=== PATIENT | male | born 1965 | race Caucasian/White ===

== ENCOUNTER 2024-02-20 16:07 | Emergency (ER) | payer OTHER ==
[~2024-02-20] VITALS: Ht 165.1 cm; Wt 91.8 kg
[2024-02-20 18:17] VITALS: BP 125/89; PULSE 74; RESP 16; TEMP 98.5; O2SAT 99
== END 2024-02-20 18:19 | disposition home or self-care (01) ==
LOC: ER 16:08
DX: S93.491A Sprain of other ligament of right ankle, initial encounter (principal); I25.10 Atherosclerotic heart disease of native coronary artery without angina pectoris; I25.2 Old myocardial infarction; Z88.8 Allergy status to other drugs, medicaments and biological substances; X50.1XXA Overexertion from prolonged static or awkward postures, initial encounter; Y93.89 Activity, other specified; Y92.89 Other specified places as the place of occurrence of the external cause; Y99.8 Other external cause status
CPT/HCPCS: 73610; 99283; A6449

== ENCOUNTER 2024-06-16 16:35 | Emergency (ER) | payer MEDICARE, OTHER ==
[~2024-06-16] VITALS: Ht 172.7 cm; Wt 90.0 kg
[2024-06-16 16:46] VITALS: BP 142/77; PULSE 92; RESP 18; TEMP 97.8; O2SAT 100
[2024-06-16 18:13] LABS: BASOPHILS # (AUTO) 0.1 X10'3 (0-0.2); BASOPHILS % (AUTO) 0.7 % (0-1); EOSINOPHILS # (AUTO) 0.1 X10'3 (0-0.9); EOSINOPHILS % (AUTO) 1.2 % (0-6); HEMOGLOBIN 16.8 g/dl (14.0-17.9); LYMPHOCYTES # (AUTO) 2.1 X10'3 (1.1-4.8); LYMPHOCYTES % (AUTO) 17.6 % (21-51); MEAN CORPUSCULAR HEMOGLOBIN 31.5 PG (27.0-31.0); MEAN CORPUSCULAR HGB CONC 34.3 g/dL (33.0-36.5); MEAN CORPUSCULAR VOLUME 91.7 FL (78-98); MEAN PLATELET VOLUME 8.3 FL (7.4-10.4); MONOCYTES # (AUTO) 0.6 X10'3 (0-0.9); MONOCYTES % (AUTO) 5.1 % (2-12); NEUTROPHILS % (AUTO) 75.4 % (42-75); PLATELET COUNT 246 X10'3 (140-440); RED BLOOD COUNT 5.35 X10'6 (4.70-6.10); RED CELL DISTRIBUTION WIDTH 13.3 % (11.5-14.5); WHITE BLOOD COUNT 11.9 X10'3 (4.5-11.0)
[2024-06-16 18:27] LABS: ALANINE AMINOTRANSFERASE 43 U/L (12-78); ALBUMIN 3.8 G/DL (3.4-5.0); ALBUMIN/GLOBULIN RATIO 1.1 (1.1-1.5); ALKALINE PHOSPHATASE 90 IU/L (46-116); ANION GAP 7 (8-16); ASPARTATE AMINO TRANSFERASE 22 U/L (10-37); BILIRUBIN,TOTAL 0.4 MG/DL (0.1-1.0); BLOOD UREA NITROGEN 20 MG/DL (7-18); BUN/CREATININE RATIO 18.9 (10.0-20.0); CALCIUM 8.9 MG/DL (8.5-10.1); CHLORIDE 105 MMOL/L (99-107); CREATININE 1.06 MG/DL (0.60-1.10); GLUCOSE 109 MG/DL (70-104); SODIUM 139 MMOL/L (135-145); TOTAL CARBON DIOXIDE 27.5 MMOL/L (24-32); TOTAL PROTEIN 7.2 G/DL (6.4-8.2); eCRCL 73 ML/MIN; eGFR 72 ML/MIN
[2024-06-16 18:35] LABS: PRO BRAIN NATRIURETIC PEPTIDE 172 PG/ML (0-125)
== END 2024-06-16 20:50 | disposition left against medical advice (07) ==
LOC: ER 16:36
DX: R07.9 Chest pain, unspecified (principal); Z88.8 Allergy status to other drugs, medicaments and biological substances; Z53.21 Procedure and treatment not carried out due to patient leaving prior to being seen by health care provider
CPT/HCPCS: 36415; 71045; 80053; 83880; 84484; 85025; 93005

== ENCOUNTER 2024-07-07 10:42 | Day surgery (SDC) | payer MEDICARE, MEDICAID ==
[2024-07-03 09:22] LABS: BASOPHILS # (AUTO) 0.1 X10'3 (0-0.2); BASOPHILS % (AUTO) 0.8 % (0-1); EOSINOPHILS # (AUTO) 0.5 X10'3 (0-0.9); EOSINOPHILS % (AUTO) 5.5 % (0-6); HEMATOCRIT 49.5 % (42.0-52.0); HEMOGLOBIN 16.7 g/dl (14.0-17.9); LYMPHOCYTES # (AUTO) 3.8 X10'3 (1.1-4.8); LYMPHOCYTES % (AUTO) 42.3 % (21-51); MEAN CORPUSCULAR HGB CONC 33.7 g/dL (33.0-36.5); MEAN CORPUSCULAR VOLUME 91.8 FL (78-98); MEAN PLATELET VOLUME 7.9 FL (7.4-10.4); MONOCYTES # (AUTO) 0.8 X10'3 (0-0.9); MONOCYTES % (AUTO) 8.8 % (2-12); NEUTROPHILS # (AUTO) 3.8 X10'3 (1.8-7.7); NEUTROPHILS % (AUTO) 42.6 % (42-75); PLATELET COUNT 279 X10'3 (140-440); WHITE BLOOD COUNT 8.9 X10'3 (4.5-11.0)
[2024-07-03 09:34] LABS: APTT 25 SECONDS (22-32); PROTHROMBIN TIME 10.6 SECONDS (9.0-12.0)
[2024-07-03 09:42] LABS: ALBUMIN 3.7 G/DL (3.4-5.0); ANION GAP 4 (8-16); BLOOD UREA NITROGEN 17 MG/DL (7-18); BUN/CREATININE RATIO 15.9 (10.0-20.0); CALCIUM 9.1 MG/DL (8.5-10.1); CHLORIDE 105 MMOL/L (99-107); CHOL/HDL RATIO 2.7 (0.00-4.99); CHOLESTEROL 123 MG/DL (0-200); CREATININE 1.07 MG/DL (0.60-1.10); GLUCOSE 96 MG/DL (70-104); HDL CHOLESTEROL 46 MG/DL (35-60); LDL CHOLESTEROL 65 MG/DL (50-100); SODIUM 141 MMOL/L (135-145); TOTAL CARBON DIOXIDE 32.4 MMOL/L (24-32); TRIGLYCERIDES 42 MG/DL (20-135); eGFR 71 ML/MIN
[2024-07-07] VITALS (10 sets, daily range): BP systolic 87–128; BP diastolic 54–69; PULSE 53–65; RESP 10–14; TEMP 97.5; O2SAT 94–98
[~2024-07-07] VITALS: Ht 162.6 cm; Wt 86.5 kg
[2024-07-07] MEDS ORDERED: ATOR40TA PO (11:09)
[2024-07-07] MEDS ORDERED: METO-539 PO (11:09)
[2024-07-07] MEDS ORDERED: AMLO5TAB5 PO (11:09)
[2024-07-07] MEDS ORDERED: ASPI-1265 PO (11:09)
[2024-07-07] MEDS ORDERED: LOP12.5T PO (11:09)
[2024-07-07] MEDS: LORazepam 0.5 MG tablet PO PRN (12:33)
[2024-07-07] MEDS: normal saline 1,000 ML IV SCH (12:33)
[2024-07-07] MEDS: diphenhydrAMINE 25mg capsule PO PRN (12:33)
[2024-07-07] MEDS ORDERED: heparin 1,000unit/ml 10ml vial 10 ML ONE (13:49)
[2024-07-07] MEDS ORDERED: verapamil 2.5 mg/ml inj IV ONE (13:49)
[2024-07-07] MEDS ORDERED: LIDOcaine 1% 30ml preserv. free vial ONE (13:49)
[2024-07-07] MEDS ORDERED: iohexol 350MG/ML 100ml bottle IV ONE ×2 (13:49→14:34)
[2024-07-07] MEDS ORDERED: nitroGLYCERIN 500mcg/5mL D5W 5 ML IV ONE (14:14)
[2024-07-07] MEDS ORDERED: fentaNYL/PF 50MCG/1 ML 2ML syringe ONE (14:20)
[2024-07-07] MEDS ORDERED: midazolam 1 mg/ML 2ml injection ONE (14:20)
[2024-07-07] MEDS ORDERED: HYDROcodone/acetaminophen 5mg/325mg tablet PO PRN (15:15)
[2024-07-07] MEDS ORDERED: ondansetron/PF 4mg/2ml inj IV PRN (15:15)
[2024-07-07] MEDS ORDERED: OXAZEpam 15mg capsule PO PRN (15:15)
[2024-07-07] MEDS ORDERED: HYDROcodone/acetaminophen 10/325mg tab PO PRN (15:15)
[2024-07-07] MEDS ORDERED: proCHLORperazine 10 MG/2 ml inj IV PRN (15:15)
== END 2024-07-07 17:35 | disposition home or self-care (01) ==
LOC: SSTAY O 10:42
PROVIDERS: ATTEND Student in an Organized Health Care Education/Training Program
DX: I25.118 Atherosclerotic heart disease of native coronary artery with other forms of angina pectoris (principal); E78.5 Hyperlipidemia, unspecified; I25.2 Old myocardial infarction; F41.9 Anxiety disorder, unspecified; F32.A Depression, unspecified; Z88.8 Allergy status to other drugs, medicaments and biological substances; Z79.82 Long term (current) use of aspirin; Z79.899 Other long term (current) drug therapy; Z79.01 Long term (current) use of anticoagulants
CPT/HCPCS: 36415; 80048; 80061; 85025; 85610; 85730; 93005; 93458; 99152; A6258; J1644; J2003; J2250; J3010; J3490; J7030; Q0163; Q9967; 99153; A6402; C1894